=== PATIENT | female | born 1955 | race Two or more races ===

== ENCOUNTER 2021-11-17 08:15 | Inpatient (IN) | payer OTHER ==
[~2021-11-17] VITALS: Ht 152.4 cm; Wt 78.0 kg
[2021-11-17] MEDS ORDERED: CALAN SR 120MG120 MG PO (11:20)
[2021-11-17] MEDS ORDERED: CARDURA XL4 MG PO (11:21)
[2021-11-22] MEDS ORDERED: DOXAZOSIN MESYLA2 MG (08:27)
[2021-11-22] MEDS ORDERED: FAMOTIDINE40 MG (08:27)
[2021-11-22] MEDS ORDERED: VERAPAMIL ER240 MG (08:27)
[2021-11-22] MEDS ORDERED: SIMVASTATIN20 MG (08:28)
[2021-11-23] MEDS ORDERED: IBUPROFEN800 MG PO (07:39)
[2021-11-23] MEDS ORDERED: GABAPENTIN300 MG PO (07:39)
== END 2021-11-23 16:40 | disposition home or self-care (01) | DRG 743 ==
LOC: O/R 11-21 07:17 → SURH 11-21 08:15 → OB/GYN 11-21 12:02 → SURG-SUITE 11-22 09:23
PROVIDERS: ADMIT Obstetrics & Gynecology Gynecology; ATTEND Obstetrics & Gynecology Gynecology
PROC: 0USG7ZZ Reposition Vagina, Via Natural or Artificial Opening (ICD-10-PCS; 2021-11-21)
PROC: 0JQC0ZZ Repair Pelvic Region Subcutaneous Tissue and Fascia, Open Approach (ICD-10-PCS; 2021-11-21)
PROC: 0UT97ZZ Resection of Uterus, Via Natural or Artificial Opening (ICD-10-PCS; principal; 2021-11-21 09:45)
DX: D25.1 Intramural leiomyoma of uterus (principal); Z20.822 Contact with and (suspected) exposure to COVID-19; N81.11 Cystocele, midline